=== PATIENT | female | born 1950 | race Hispanic/Latino ===

== ENCOUNTER 2020-05-11 09:19 | Outpatient (CLI) | payer MEDICARE, OTHER ==
--- NOTE | 2020-05-11 10:23 | Ultrasound Report ---
EXAMINATION: Left Complete Breast Ultrasound, 05/11/2020 INDICATION: 6 month follow-up evaluation of left breast nodule. COMPARISON: Left breast ultrasound, 11/11/2019. Diagnostic mammogram, 09/24/2019 FINDINGS: Complete sonographic evaluation of all 4 quadrants and retroareolar region was performed. Sonographic evaluation of the left breast at the 11:00 position 4 cm from the nipple demonstrates an oval wider than tall hypoechoic mass without vascularity. This measures 0.7 x 0.6 x 0.3 cm. This has slightly increased in size since the previous study where it measured a maximum of 0.5 mm. A few scat tered small cysts and fibrocystic change are again noted.. IMPRESSION: Follow up recommendation: Biopsy BI-RADS Category 4: Suspicious for Malignancy. Slight interval increase in size of circumscribed ova l left breast mass at the 11:00 position. This mass has benign features but because it is increased i n size, ultrasound-guided biopsy is recommended. This may represent a fibroadenoma. A normal or "negative" report should not preclude biopsy or follow-up of a clinically suspicious find ing. Signer Name: Vicki Stout MD Signed: 05/11/2020 10:18 AM Workstation Name: [id number]
== END 2020-05-11 09:20 | disposition home or self-care (01) ==
LOC: SPVWC 09:19
PROVIDERS: ATTEND Surgery
DX: N60.02 Solitary cyst of left breast (principal)

== ENCOUNTER 2020-05-19 09:56 | Outpatient (CLI) | payer MEDICARE, OTHER ==
--- NOTE | 2020-05-19 11:40 | Mammography Report ---
DIGITAL DIAGNOSTIC MAMMOGRAM CONVENTIONAL, 05/19/2020 CLINICAL INFORMATION / INDICATION: Status post ultrasound-guided biopsy of left breast nodule. TECHNIQUE: Digital left mammographic imaging was performed. COMPARISON: 05/11/2020, 11/11/2019 FINDINGS: Breast Density: The breast is heterogeneously dense, which may obscure small masses. There is concordant biopsy clip placement in the 11:00 position middle depth at the site of the previ ously described nodule. No other significant abnormality. IMPRESSION: Concordant left breast biopsy clip placement. Please correlate with the pathology report. Follow up recommendation: Clinical exam Post biopsy imaging. A "normal" or negative report should not discourage follow up or biopsy of a clinically significant f inding. A written summary of these findings will be mailed to the patient. The patient will be entered into a mammography reporting system which will generate a reminder letter for the patient's next appointmen t at the appropriate interval. According to the [employer], yearly mammograms are recommended starting at age 40 and continuing as long as a woman is in good health. Breast MRI is recommended for women with an ana roximately 20-25% or greater lifetime risk of breast cancer, including women with a strong family his tory of breast or ovarian cancer and women who have been treated for Hodgkin's disease. Signer Name: Jorge L Knight MD Signed: 05/19/2020 11:36 AM Workstation Name: [id number]
--- NOTE | 2020-05-21 08:05 | Ultrasound Report ---
ULTRASOUND GUIDED LEFT BREAST BIOPSY, 04/30/2009 CLINICAL INFORMATION / INDICATION: Suspicious left breast nodule. COMPARISON: 05/11/2020 left breast ultrasound. PROCEDURE: Risks, benefits, and indications to the procedure were discussed with the patient in detail, includin g bleeding, infection, hematoma formation, and inadequate tissue sampling. The patient agreed to proc eed with both verbal and written consent. A timeout procedure was performed with two patient identifi ers. The breast was prepped and draped in the usual sterile fashion. Lidocaine 1% with and without epineph rine were used for local anesthesia. Under direct ultrasound guidance, multiple core samples were obt ained of the left breast nodule. The nodule became smaller and less distinct after the first pass. A biopsy marker was then placed. Biopsy device was removed and hemostasis achieved with manual pressure . A sterile dressing was applied to the skin. The patient tolerated the procedure without difficulty. No complications were encountered. Postbiopsy instructions were discussed with the patient and given in writing. Specimens were sent to pathology. IMPRESSION: 1. Technically successful ultrasound guided left breast biopsy. Biopsy results are pending and will be reported in an addendum. Signer Name: Jorge L Knight MD Signed: 05/19/2020 11:21 AM Workstation Name: [id number]
== END 2020-05-19 09:57 | disposition home or self-care (01) ==
LOC: SPVWC 09:56
PROVIDERS: ATTEND Surgery
DX: N00.2 Acute nephritic syndrome with diffuse membranous glomerulonephritis (principal); R92.8 Other abnormal and inconclusive findings on diagnostic imaging of breast; N63.20 Unspecified lump in the left breast, unspecified quadrant
CPT/HCPCS: 88305

== ENCOUNTER 2020-10-11 13:41 | Outpatient (CLI) | payer MEDICARE, OTHER ==
--- NOTE | 2020-10-12 10:41 | Mammography Report ---
DIGITAL SCREENING MAMMOGRAM WITH CAD, 10/11/2020 INDICATION: Routine screening mammography. TECHNIQUE: Digital bilateral 2D mammography was obtained in the craniocaudal and mediolateral obliq ue projections. This examination was interpreted with the benefit of Computer-Aided Detection analysi s. COMPARISON: 08/08/2018 FINDINGS: Breast Density: The breasts are heterogeneously dense, which may obscure small masses. There is no evidence of dominant mass, suspicious calcifications or architectural distortion in the r ight breast. Nodular density inner left breast at 3:00 mid/posterior depth. Ultrasound with possible spot compression views is recommended. IMPRESSION: Follow up recommendation: Ultrasound BI-RADS Category 0: Incomplete. Needs additional imaging evaluation and/or prior mammograms for maryanne rison. A "normal" or negative report should not discourage follow up or biopsy of a clinically significant f inding. A written summary of these findings will be mailed to the patient. The patient will be entered into a mammography reporting system which will generate a reminder letter for the patient's next appointmen t at the appropriate interval. The [employer] recommends yearly mammograms starting at age 40 and continuing as l farooq as a woman is in good health. Breast MRI is recommended for women with an approximate 20-25% or greater lifetime risk of breast cancer, including women with a strong family history of breast or ova linda cancer or who have been treated for Hodgkin's disease. Signer Name: Jasvir Lopez MD Signed: 10/12/2020 10:36 AM Workstation Name: [id number]
== END 2020-10-11 13:42 | disposition home or self-care (01) ==
LOC: SPVWC 13:41
PROVIDERS: ATTEND Surgery
DX: Z12.31 Encounter for screening mammogram for malignant neoplasm of breast (principal); N64.89 Other specified disorders of breast
CPT/HCPCS: 77067

== ENCOUNTER 2020-10-27 11:18 | Outpatient (CLI) | payer MEDICARE, OTHER ==
--- NOTE | 2020-10-27 12:42 | Ultrasound Report ---
LEFT DIGITAL DIAGNOSTIC MAMMOGRAM WITH CAD , 10/27/2020 LEFT LIMITED BREAST ULTRASOUND CLINICAL INFORMATION / INDICATION: Abnormal screening mammogram. TECHNIQUE: Digital left mammographic imaging was performed. Spot compression views were obtained. Rae ited ultrasound was performed. This examination was interpreted with the benefit of Computer-Aided De tection (CAD) analysis. COMPARISON: Recent screening mammogram 10/11/2020 as well as prior mammograms 09/24/2019, 08/08/2018 and 08/08/2017 FINDINGS: Breast Density: The breasts are heterogeneously dense, which may obscure small masses. MAMMOGRAPHIC FINDINGS: Spot compression views of the area of interest in the left breast, upper inner quadrant are less prominent with spot compression imaging and appear grossly unchanged from older ma mmograms. Ultrasound will be performed due to presence of dense breast tissue. ULTRASOUND FINDINGS: Targeted ultrasound evaluation was performed of the area of interest. Small ar ea of fibrocystic tissue is noted at 3:00, 5 cm from nipple. No solid mass, cyst, or suspicious area of shadowing is noted. IMPRESSION: No mammographic or sonographic evidence of malignancy. Follow up recommendation: Routine yearly BI-RADS Category 2: Benign. A "normal" or negative report should not discourage follow up or biopsy of a clinically significant f inding. A written summary of these findings will be mailed to the patient. The patient will be entered into a mammography reporting system which will generate a reminder letter for the patient's next appointmen t at the appropriate interval. According to the [employer], yearly mammograms are recommended starting at age 40 and continuing as long as a woman is in good health. Breast MRI is recommended for women with an ana roximately 20-25% or greater lifetime risk of breast cancer, including women with a strong family his tory of breast or ovarian cancer and women who have been treated for Hodgkin's disease. Signer Name: Candace Metz MD Signed: 10/27/2020 12:37 PM Workstation Name: [id number]
== END 2020-10-27 11:19 | disposition home or self-care (01) ==
LOC: SPVWC 11:18
PROVIDERS: ATTEND Surgery
DX: R92.8 Other abnormal and inconclusive findings on diagnostic imaging of breast (principal)